=== PATIENT | female | born 1965 | race Caucasian/White ===

== ENCOUNTER 2016-08-01 13:22 | Emergency (ER) | payer SELFPAY ==
[~2016-08-01] VITALS: Ht 175.3 cm; Wt 86.7 kg
[~2016-08-01 13:22] MED LIST: PRED20TA PO; TRAM-10 PO
[2016-08-01 13:34] VITALS: TEMP 36.5; Ht 175.3 cm; Wt 86.7 kg
[2016-08-01] MEDS ORDERED: SODIUM CHLORIDE 0.9% 1000ML 1,000 ML IV STA (14:27)
[2016-08-01] MEDS ORDERED: SODIUM CHLORIDE 0.9% 500ML 500 ML IV STA (14:27)
--- NOTE | 2016-08-01 14:54 | EMERGENCY ROOM VISIT NOTE ---
History Report prepared by Enedina: Elizabeth Angel Under the Supervision of: Dr. Tiny Amor M.D. First contact with patient: 14:18 Chief Complaint: DIZZY Stated Complaint: DIZZINESS,NAUSEA,PRESSURE IN HEAD Nursing Triage Summary: Triage note: pt reports "we were in the car and i got really dizzy and really nauseated and shakey, like motion sickness but not like spinning and i have pressure in my head." History of Present Illness The patient is a 51 year old female who presents to the Emergency Room with complaints of intermittent head pressure that began this afternoon. The patient states that she woke up with a dull headache. While she was sitting in the parked car while her significant other was at a store this afternoon, she became suddenly dizzy and nauseated. She did not feel like the room was spinning or like she was going to pass out, although she states that she was seated. She then developed a pressure-like sensation in her head. The symptoms resolved after a few minutes. She had a second episode while they were driving in the car. During the second episode, she became shaky and clammy. Currently, the patient states that she is feeling better. She reports that she has had a cough all week. The patient has a history of breast cancer in 2003. There is a family history of stroke. The patient does not have a personal history of migraines. Denies chest pain, shortness of breath, vomiting, or other complaints. Source of History: patient Onset: this afternoon Position: head Quality: pressure Timing: intermittent Associated Symptoms: + cough, + headache, + melena, No SOB, No chest pain, No vomiting Note: Other symptoms: dizziness, clamminess/sweating Review of Systems See HPI for pertinent positives & negatives. A total of 10 systems reviewed and were otherwise negative. Past Medical & Surgical Medical Problems: (1) Breast cancer Family History Cancer Heart disease Stroke Social History Smoking Status: Never Smoker Marital Status: in relationship Housing Status: lives with family Occupation Status: employed Current/Historical Medications No Active Prescriptions or Reported Meds Allergies Coded Allergies: Ampicillin (Unverified Allergy, Intermediate, RASH, 08/01/16) Hydrocodone (Verified Allergy, Unknown, 06/01/09) Penicillins (Verified Allergy, Unknown, AMPICILLIN = ?, 06/01/09) Codeine (Verified Adverse Reaction, Unknown, N&V, 06/01/09) Physical Exam Vital Signs Date Time Temp Pulse Resp B/P Pulse Ox O2 Delivery O2 Flow Rate FiO2 08/01/16 17:21 72 21 102/80 100 Room Air 08/01/16 16:33 71 16 113/73 100 Room Air 08/01/16 14:42 76 08/01/16 13:34 36.5 81 18 143/89 99 Room Air Physical Exam Vital signs reviewed. General: Well-appearing 51 year old female, in no significant distress. HEENT: No scleral icterus, PERRLA, neck supple. Atraumatic. Cardiovascular: Regular rate and rhythm, no extra sounds. Pulmonary: Clear to auscultation bilaterally, normal work of breathing. Abdomen: Soft, nontender, nondistended, positive bowel sounds. Musculoskeletal: Atraumatic, no peripheral edema. Neurologic: Patient awake alert and oriented x 3, full strength in all 4 extremities. Cranial nerves 2 through 12 grossly intact. Skin: Warm, dry, no rash Medical Decision & Procedures ER Provider Diagnostic Interpretation: Radiology results as stated below per my review and radiologist interpretation: CT HEAD WITHOUT CONTRAST (CT) CLINICAL HISTORY: Headache and dizziness COMPARISON STUDY: No previous studies for comparison. TECHNIQUE: Axial CT of the brain is performed from the vertex to the skull base. IV contrast was not administered for this examination. CT DOSE: 537.48 mGy.cm FINDINGS: There is a 5 mm dural based calcification with the right frontal region. This is nonspecific. A tiny calcified meningioma cannot be excluded. There is no CT evidence of acute cortical infarction. There is no evidence of midline shift. There is no acute hemorrhage. No calvarial fractures are visualized. There is no evidence of pathologic ventricular dilatation. There is no evidence of acute sinusitis IMPRESSION: Nonspecific 5 mm dural based calcification within the right frontal region. An old calcified meningioma cannot be excluded. Otherwise unremarkable noncontrast head CT Electronically signed by: Eduar Helm M.D. 08/01/2016 3:26 PM Dictated Date/Time: 08/01/2016 3:24 PM Laboratory Results 08/01/16 14:45 Red Blood Count 4.75, Mean Corpuscular Volume 88.6, Mean Corpuscular Hemoglobin 30.9, Mean Corpuscular Hemoglobin Concent 34.9, Mean Platelet Volume 9.0, Neutrophils (%) (Auto) 71.4, Lymphocytes (%) (Auto) 19.8, Monocytes (%) (Auto) 6.7, Eosinophils (%) (Auto) 1.6, Basophils (%) (Auto) 0.2, Neutrophils # (Auto) 4.36, Lymphocytes # (Auto) 1.21, Monocytes # (Auto) 0.41, Eosinophils # (Auto) 0.10, Basophils # (Auto) 0.01 08/01/16 14:45 Test 08/01/16 14:45 08/01/16 14:52 08/01/16 16:25 White Blood Count 6.11 K/uL (4.8-10.8) Red Blood Count 4.75 M/uL (4.2-5.4) Hemoglobin 14.7 g/dL (12.0-16.0) Hematocrit 42.1 % (37-47) Mean Corpuscular Volume 88.6 fL (80-100) Mean Corpuscular Hemoglobin 30.9 pg (25-34) Mean Corpuscular Hemoglobin Concent 34.9 g/dl (32-36) Platelet Count 201 K/uL (130-400) Mean Platelet Volume 9.0 fL (7.4-10.4) Neutrophils (%) (Auto) 71.4 % Lymphocytes (%) (Auto) 19.8 % Monocytes (%) (Auto) 6.7 % Eosinophils (%) (Auto) 1.6 % Basophils (%) (Auto) 0.2 % Neutrophils # (Auto) 4.36 K/uL (1.4-6.5) Lymphocytes # (Auto) 1.21 K/uL (1.2-3.4) Monocytes # (Auto) 0.41 K/uL (0.11-0.59) Eosinophils # (Auto) 0.10 K/uL (0-0.5) Basophils # (Auto) 0.01 K/uL (0-0.2) RDW Standard Deviation 42.4 fL (36.4-46.3) RDW Coefficient of Variation 13.0 % (11.5-14.5) Immature Granulocyte % (Auto) 0.3 % Immature Granulocyte # (Auto) 0.02 K/uL (0.00-0.02) Anion Gap 10.0 mmol/L (3-11) Est Creatinine Clear Calc Drug Dose 105.4 ml/min Estimated GFR () 107.7 Estimated GFR (Non- 92.9 BUN/Creatinine Ratio 19.3 (10-20) Calcium Level 8.9 mg/dl (8.5-10.1) Magnesium Level 2.2 mg/dl (1.8-2.4) Total Bilirubin 0.3 mg/dl (0.2-1) Direct Bilirubin < 0.1 mg/dl (0-0.2) Aspartate Amino Transf (AST/SGOT) 13 U/L (15-37) Alanine Aminotransferase (ALT/SGPT) 21 U/L (12-78) Alkaline Phosphatase 48 U/L (45-117) Total Creatine Kinase 61 U/L (26-192) Creatine Kinase MB 0.8 ng/ml (0.5-3.6) Creatine Kinase MB Ratio 1.3 (0-3.0) Total Protein 7.4 gm/dl (6.4-8.2) Albumin 4.1 gm/dl (3.4-5.0) Thyroid Stimulating Hormone (TSH) 1.530 uIu/ml (0.300-4.500) Bedside Troponin I 0.000 ng/ml (0-0.045) Urine Color YELLOW Urine Appearance CLEAR (CLEAR) Urine pH 6.5 (4.5-7.5) Urine Specific [place] 1.010 (1.000-1.030) Urine Protein NEG (NEG) Urine Glucose (UA) NEG (NEG) Urine Ketones NEG (NEG) Urine Occult Blood NEG (NEG) Urine Nitrite NEG (NEG) Urine Bilirubin NEG (NEG) Urine Urobilinogen NEG (NEG) Urine Leukocyte Esterase TRACE (NEG) Urine WBC (Auto) 1-5 /hpf (0-5) Urine RBC (Auto) 0-4 /hpf (0-4) Urine Hyaline Casts (Auto) 0 /lpf (0-5) Urine Epithelial Cells (Auto) 5-10 /lpf (0-5) Urine Bacteria (Auto) NEG (NEG) Laboratory results per my review. Medications Administered Medications (Trade) Dose Ordered Sig/Lynda Route Start Time Stop Time Status Last Admin Dose Admin Sodium Chloride 500 ml @ 999 mls/hr Q31M STAT IV 08/01/16 14:27 08/01/16 14:57 DC 08/01/16 14:50 999 MLS/HR Sodium Chloride (Nss 1000ml) 1,000 ml @ 125 mls/hr Q8H STAT IV 08/01/16 14:27 08/01/16 17:36 DC 08/01/16 15:02 125 MLS/HR ECG Indication: other (dizzy) Rate (beats per minute): 67 Rhythm: normal sinus Findings: no acute ischemic change, no ectopy ED Course 1424: The patient was evaluated in room C11B. A complete history and physical examination was performed. 1427: Ordered NSS 1000 ml @ 125 mls/hr IV, NSS 500 ml @ 999 mls/hr IV. 1655: Upon reevaluation, the patient was resting comfortably. I discussed findings with the patient. She verbalized agreement of the treatment plan. The patient was discharged home. Medical Decision Differential diagnosis: Etiologies such as vasovagal event, infection, hypoglycemia, electrolyte abnormalities, cardiac sources, intracerebral event, toxicologic, neurologic, substance abuse, as well as others were entertained. This pt was evaluated and appeared to be in no distress. IV access was obtained and lab work was drawn. Pt was hydrated with NSS. EKG is a NSR without ischemia or ectopy. Lab work is unrevealing. D/t pt's h/o breast CA, a CT head was performed with unusual headache sx. This is read as "Nonspecific 5 mm dural based calcification within the right frontal region. An old calcified meningioma cannot be excluded. Otherwise unremarkable noncontrast head CT." Pt was reevaluated and feeling improved. The etiology of her symptoms is unclear. Pt was informed of the CT findings and advised to f/u with her PCP for further imaging. Pt was d/c to the care of her and will return to the ED for worsening of symptoms or any medical concerns. Impression Primary Impression: Dizziness Scribe Attestation The scribe's documentation has been prepared under my direction and personally reviewed by me in its entirety. I confirm that the note above accurately reflects all work, treatment, procedures, and medical decision making performed by me. Departure Information Dispostion Home / Self-Care Prescriptions No Active Prescriptions or Reported Meds Referrals No Doctor, Assigned (PCP) Patient Instructions My [facility] Additional Instructions Diagnosis: Dizziness Drink plenty of clear fluids. Tylenol 650 mg every 6 hours as needed for pain. Follow-up with your physician this week for reevaluation. Return to the ER for worsening of symptoms or any medical concerns.
[2016-08-01 14:58] LABS: BASO % 0.2 %; BASO ABS # 0.01 K/uL (0-0.2); COMPLETE YES; EOS % 1.6 %; HEMATOCRIT 42.1 % (37-47); IG% 0.3 %; LYMPH % 19.8 %; LYMPH ABS # 1.21 K/uL (1.2-3.4); MEAN CELL VOLUME 88.6 fL (80-100); MEAN CORPUSCULAR HEMOGLOBIN 30.9 pg (25-34); MEAN CORPUSCULAR HGB CONC 34.9 g/dl (32-36); MONO % 6.7 %; NEUT % 71.4 %; PLATELET COUNT 201 K/uL (130-400); RED BLOOD COUNT 4.75 M/uL (4.2-5.4); WHITE BLOOD COUNT 6.11 K/uL (4.8-10.8)
[2016-08-01 15:18] LABS: ALT/SGPT 21 U/L (12-78); BLOOD UREA NITROGEN 15 mg/dl (7-18); BUN/CREATININE RATIO 19.3 (10-20); CALCIUM 8.9 mg/dl (8.5-10.1); CARBON DIOXIDE 26 mmol/L (21-32); CHLORIDE 104 mmol/L (98-107); CREATININE 0.75 mg/dl (0.60-1.20); GLUCOSE 103 mg/dl (70-99); MAGNESIUM 2.2 mg/dl (1.8-2.4); POTASSIUM 3.6 mmol/L (3.5-5.1); SODIUM 140 mmol/L (136-145)
--- NOTE | 2016-08-01 15:28 | DIAGNOSTIC IMAGING REPORT ---
CT HEAD WITHOUT CONTRAST (CT) CLINICAL HISTORY: Headache and dizziness COMPARISON STUDY: No previous studies for comparison. TECHNIQUE: Axial CT of the brain is performed from the vertex to the skull base. IV contrast was not administered for this examination. CT DOSE: 537.48 mGy.cm FINDINGS: There is a 5 mm dural based calcification with the right frontal region. This is nonspecific. A tiny calcified meningioma cannot be excluded. There is no CT evidence of acute cortical infarction. There is no evidence of midline shift. There is no acute hemorrhage. No calvarial fractures are visualized. There is no evidence of pathologic ventricular dilatation. There is no evidence of acute sinusitis IMPRESSION: Nonspecific 5 mm dural based calcification within the right frontal region. An old calcified meningioma cannot be excluded. Otherwise unremarkable noncontrast head CT Electronically signed by: Eduar Helm M.D. 08/01/2016 3:26 PM Dictated Date/Time: 08/01/2016 3:24 PM
[2016-08-01 15:29] LABS: ALKALINE PHOSPHATASE 48 U/L (45-117); AST/SGOT 13 U/L (15-37); CKMB/CK RATIO 1.3 (0-3.0)
[2016-08-01 16:40] LABS: URINE APPEARANCE CLEAR (CLEAR); URINE BILIRUBIN NEG (NEG); URINE COLOR YELLOW; URINE NITRITE NEG (NEG); URINE PH 6.5 (4.5-7.5); UROBILINOGEN NEG (NEG); ZZUR CULT IF INDIC CLEAN CATCH NO
[2016-08-01 16:41] LABS: MANUAL MICROSCOPIC REQUIRED? NO; REVIEW REQ? NO
[2016-08-01 17:21] VITALS: BP 102/80; PULSE 72; O2SAT 100
== END 2016-08-01 17:32 | disposition home or self-care (01) ==
LOC: C.EDB 13:24 → C.EDC 17:32
DX: R42 Dizziness and giddiness (principal); R51 Headache; R05 Cough; G93.89 Other specified disorders of brain; Z85.3 Personal history of malignant neoplasm of breast; Z82.3 Family history of stroke